=== PATIENT | female | born 1980 ===

== ENCOUNTER 2017-06-07 09:17 | Emergency (ER) | payer SELFPAY ==
[2017-06-07 09:24] VITALS: BMI 36.1
--- NOTE | 2017-06-07 10:06 | C.PDOC ---
History Of Present Illness 36 y/o F c PMHx HTN p/w chest pain x 3 days. Patient describes symptoms as chest pressure, midchest, nonradiating, associated with mild shortness of breath , L hand numbness, which seems to occur when patient is emotionally stressed in connection with her children's behavioral/psychiatric issues. Patient went to clinic last week and was found to be hypertensive, was started on Lisinopril and told to come back today for blood pressure check. At today's visit, she was found to be hypertensive still and she was instructed to come to ED. She denies any current dyspnea, vomiting, weakness, vision changes, back pain. Time Seen by Provider: 06/07/17 09:25 Chief Complaint (Nursing): High Blood Pressure Past Medical History Vital Signs: Last Vital Signs Temp 98.5 F 06/07/17 09:25 Pulse 78 06/07/17 09:25 Resp 17 06/07/17 09:25 BP 143/89 06/07/17 11:31 Pulse Ox 99 06/07/17 11:20 - Medical History PMH: Anxiety, HTN Family History: States: No Known Family Hx - Social History Hx Alcohol Use: No Hx Substance Use: No - Immunization History Hx Tetanus Toxoid Vaccination: No Hx Influenza Vaccination: No Review Of Systems Except As Marked, All Systems Reviewed And Found Negative. Constitutional: Negative for: Fever Gastrointestinal: Negative for: Vomiting Physical Exam - Physical Exam Additional Physical Exam Comments: Gen: NAD Head: NC/AT Eyes: No scleral icterus ENT: MMM Neck: Supple Chest: No tenderness CV: Regular rate Lungs: CTA b/l Abd: Soft, NT Back: No CVA tenderness Skin: No rash Neuro: Alert, no focal deficit Extremities: No swelling or tenderness ED Course And Treatment - Laboratory Results Result Diagrams: 06/07/17 10:18 06/07/17 10:18 O2 Sat by Pulse Oximetry: 99 Medical Decision Making Medical Decision Making: Patient with likely chronic hypertension. PERC negative. No apparent distress. Will check CXR and enzymes in this chest pressure of longer than 24 hours duration. If evaluation negative, will discharge home and have refollow up with clinic for further HTN management. EKG NSR 77 bpm, no ST elevations or T wave inversions. 11:14 CXR IMPRESSION: No acute cardiopulmonary disease appreciated. Disposition - Disposition Referrals: [facility] [Outside] Disposition: HOME/ ROUTINE Disposition Time: 11:47 Condition: STABLE Instructions: High Blood Pressure (DC) Forms: [employer] (Pashto) - Clinical Impression Clinical Impression: Hypertension
[2017-06-07 10:27] LABS: BASO # 0.1 K/uL (0.0-0.2); BASO % 0.9 % (0.0-2.0); EOS # 0.1 K/uL (0.0-0.7); EOS % 1.4 % (0.0-4.0); HEMOGLOBIN 14.4 g/dL (11.0-16.0); LYMPH # 2.3 K/uL (1.0-4.3); LYMPH % 31.6 % (20.0-40.0); MEAN CELL VOLUME 85.9 fL (81.0-99.0); MEAN CORPUSCULAR HEMOGLOBIN 30.7 pg (27.0-31.0); MEAN CORPUSCULAR HGB CONC 35.7 g/dL (33.0-37.0); MEAN PLATELET VOLUME 8.2 fL (7.2-11.7); MONO # 0.4 K/uL (0.0-0.8); NEUT # 4.4 K/uL (1.8-7.0); NEUT % 60.1 % (50.0-75.0); RBC 4.68 Mil/uL (3.80-5.20); RED CELL DISTRIBUTION WIDTH 12.4 % (11.5-14.5); WHITE BLOOD COUNT 7.3 K/uL (4.8-10.8)
[2017-06-07 10:56] LABS: ALB/GLOB RATIO 1.2 (1.0-2.1); ALBUMIN 4.4 g/dL (3.5-5.0); ALT/SGPT 28 U/L (9-52); AST/SGOT 32 U/L (14-36); BLOOD UREA NITROGEN 8 mg/dL (7-17); CK-MB 0.48 ng/mL (0.0-3.38); GFR AFRICAN-AMERICAN > 60; GFR NON-AFRICAN AMERICAN > 60
--- NOTE | 2017-06-07 11:16 | RAD ---
HISTORY: chest pressure COMPARISON: No prior. TECHNIQUE: Chest PA and lateral FINDINGS: LUNGS: No active pulmonary disease. PLEURA: No significant pleural effusion identified. No pneumothorax apparent. CARDIOVASCULAR: Normal. OSSEOUS STRUCTURES: No significant abnormalities. VISUALIZED UPPER ABDOMEN: Normal. OTHER FINDINGS: None. IMPRESSION: No acute cardiopulmonary disease appreciated.
[2017-06-07 11:56] VITALS: BP 147/87; PULSE 67; RESP 18; TEMP 97.8; O2SAT 97
--- NOTE | 2017-06-08 22:38 | CARD ---
APPROVED REPORT EKG Measurement Heart [id number] <Conclusion> Normal sinus rhythm Inferior infarct, age undetermined Abnormal ECG
== END 2017-06-07 11:57 | disposition home or self-care (01) ==
LOC: C.ER 09:17
DX: I10 Essential (primary) hypertension (principal)

== ENCOUNTER 2018-03-26 10:40 | Outpatient (CLI) | payer SELFPAY | END 2018-03-26 10:41 | disposition home or self-care (01) | LOC: C.MRIC 10:41 ==

== ENCOUNTER 2018-04-30 00:24 | Emergency (ER) | payer SELFPAY ==
[2018-04-30 00:24] VITALS: BMI 37.3
[2018-04-30 00:36] VITALS: PULSE 89; TEMP 98.2
--- NOTE | 2018-04-30 00:50 | C.PDOC ---
History Of Present Illness Patient was walking down some stairs when she missed a step and had discomfort to her left medial knee. She now has difficulty placing weight on the knee. Contrary to triage she does not complain of ankle pain. Time Seen by Provider: 04/30/18 00:50 Chief Complaint (Nursing): Lower Extremity Problem/Injury History Per: Patient History/Exam Limitations: no limitations Onset/Duration Of Symptoms: Hrs Current Symptoms Are (Timing): Still Present Severity: Moderate Pain Scale Rating Of: 4 Recent travel outside of the [place]: No Past Medical History Reviewed: Historical Data, Nursing Documentation, Vital Signs Vital Signs: Last Vital Signs Temp 98.2 F 04/30/18 00:33 Pulse 89 04/30/18 00:33 Resp 20 04/30/18 00:33 BP 138/99 H 04/30/18 00:33 Pulse Ox 99 04/30/18 00:33 - Medical History PMH: Anxiety, HTN Denies: Chronic Kidney Disease Family History: States: No Known Family Hx - Social History Hx Alcohol Use: No Hx Substance Use: No - Immunization History Hx Tetanus Toxoid Vaccination: No Hx Influenza Vaccination: No Hx Pneumococcal Vaccination: No Review Of Systems Constitutional: Negative for: Fever, Chills Cardiovascular: Negative for: Chest Pain, Palpitations Respiratory: Negative for: Cough, Shortness of Breath Gastrointestinal: Negative for: Nausea, Vomiting Musculoskeletal: Positive for: Other (Left medial knee pain) Neurological: Negative for: Weakness, Numbness Physical Exam - Physical Exam Appears: Non-toxic Skin: Warm, Dry Head: Normacephalic Oral Mucosa: Moist Extremity: Capillary Refill (<2 seconds), No Deformity, Other (Left medial knee tenderness, able to actively flex, however pain on abduction. Slight ecchymosis on left medial knee. No ballottement.) Pulses: Left Dorsalis Pedis: Normal, Right Dorsalis Pedis: Normal Neurological/Psych: Oriented x3 ED Course And Treatment O2 Sat by Pulse Oximetry: 99 (Room air) Pulse Ox Interpretation: Normal Progress Note: CT left lower extremity ordered. Disposition Counseled Patient/Family Regarding: Studies Performed, Diagnosis, Need For Followup - Disposition Referrals: Chico Hutchins III, MD [Staff Provider] - Disposition: HOME/ ROUTINE Disposition Time: 00:50 Condition: FAIR Additional Instructions: If not improved in 5-7 days may need an MRI Instructions: Knee Sprain (DC) Forms: [employer] (Tuvaluan) - Clinical Impression Clinical Impression: Left knee sprain - Scribe Statement The provider has reviewed the documentation as recorded by the Scribe Kayden Coronado All medical record entries made by the Scribe were at my direction and personally dictated by me. I have reviewed the chart and agree that the record accurately reflects my personal performance of the history, physical exam, medical decision making, and the department course for this patient. I have also personally directed, reviewed, and agree with the discharge instructions and disposition.
[2018-04-30 02:38] VITALS: BP 122/72; RESP 16
[2018-04-30 03:11] VITALS: O2SAT 99
--- NOTE | 2018-04-30 07:19 | CT ---
CT left knee HISTORY: Fall. Pain. COMPARISON: None available. TECHNIQUE: Multiple contiguous axial images were performed through the left knee without the use of intravenous contrast. Subsequently, sagittal and coronal reformatted images were obtained. This CT exam was performed using one or more of the following dose reduction techniques: Automated exposure control, adjustment of the mA and/or kV according to patient size, and/or use of iterative reconstruction technique. Findings: Reticulation and edema seen within the prepatellar soft tissues. Mild medial compartment and patellofemoral compartment joint space narrowing with some subchondral sclerosis. Mild lateral subluxation of the patella. Suggestion of some possible focal thickening at the level of the medial collateral ligament. Evaluation for ligamentous injury is markedly limited on CT scan and correlation with MRI would be helpful for further evaluation if clinically indicated. Small bony exostosis/osteochondroma emanating from the lateral cortex of the proximal tibia at the level of the metaphysis best seen on series 601, image 54 measuring approximately 5 millimeters. Small suprapatellar joint effusion. Impression: 1. Reticulation and edema seen within the prepatellar soft tissues. 2. Suggestion of some possible focal thickening at the level of the medial collateral ligament. Evaluation for ligamentous injury is markedly limited on CT scan and correlation with MRI would be helpful for further evaluation if clinically indicated. 3. Mild medial compartment and patellofemoral compartment joint space narrowing with some subchondral sclerosis. 4. Mild lateral subluxation of the patella. 5. Small bony exostosis/osteochondroma emanating from the lateral cortex of the proximal tibia at the level of the metaphysis best seen on series 601, image 54 measuring approximately 5 millimeters. 6. Small suprapatellar joint effusion. If pain persists, consider correlation with MRI to better evaluate for internal derangement of the knee as well as evaluate the osteochondroma for cartilaginous cap. A preliminary report was generated at 2:41 a.m. on 04/30/[address] Chandu Handy from [employer]. Please note this case was placed in the PA review folder.
== END 2018-04-30 03:23 | disposition home or self-care (01) ==
LOC: C.ER 00:24
DX: S83.92XA Sprain of unspecified site of left knee, initial encounter (principal); X50.0XXA Overexertion from strenuous movement or load, initial encounter

== ENCOUNTER 2018-06-01 14:11 | Outpatient (CLI) | payer SELFPAY | END 2018-06-01 14:12 | disposition home or self-care (01) | LOC: C.MRIC 14:11 | DX: S83.412A Sprain of medial collateral ligament of left knee, initial encounter (principal) ==